=== PATIENT | male | born 1975 | race African-American/Black ===

== ENCOUNTER 2019-10-21 00:11 | Emergency (ER) | payer MEDICAID ==
[~2019-10-21] VITALS: Ht 185.4 cm; Wt 90.3 kg
[2019-10-21 00:16] VITALS: BP 122/78
== END 2019-10-21 00:47 | disposition home or self-care (01) ==
LOC: ER 00:12
DX: S51.831A Puncture wound without foreign body of right forearm, initial encounter (principal); X58.XXXA Exposure to other specified factors, initial encounter; Y93.89 Activity, other specified; Y92.89 Other specified places as the place of occurrence of the external cause; Y99.8 Other external cause status
CPT/HCPCS: 99281

== ENCOUNTER 2020-02-13 15:43 | Emergency (ER) | payer MEDICAID ==
[~2020-02-13] VITALS: Ht 182.9 cm; Wt 94.9 kg
[2020-02-13 15:44] VITALS: BP 120/86
[2020-02-13] MEDS ORDERED: IBUP-1984 PO (17:14)
[2020-02-13] MEDS ORDERED: ibuprofen tablet 400 MG TABLET PO ONE (17:15)
== END 2020-02-13 17:58 | disposition home or self-care (01) ==
LOC: ER 15:43
DX: M79.644 Pain in right finger(s) (principal); Z72.89 Other problems related to lifestyle; Z79.899 Other long term (current) drug therapy; X50.0XXA Overexertion from strenuous movement or load, initial encounter; Y93.89 Activity, other specified; Y92.89 Other specified places as the place of occurrence of the external cause; Y99.8 Other external cause status
CPT/HCPCS: 29125; 29130; 73140; 99283